=== PATIENT | male | born 1940 | race Caucasian/White ===

== ENCOUNTER 2019-04-16 20:24 | Emergency (ER) | payer MEDICARE ==
[~2019-04-16] VITALS: Ht 167.6 cm; Wt 70.0 kg
[2019-04-16 22:27] VITALS: BP 184/90
== END 2019-04-16 22:53 | disposition home or self-care (01) ==
LOC: ED 21:32
DX: N48.1 Balanitis (principal); I10 Essential (primary) hypertension; E11.9 Type 2 diabetes mellitus without complications; Z87.891 Personal history of nicotine dependence
CPT/HCPCS: 36415; 74177; 76870; 80053; 81001; 83605; 85025; 85610; 85730; 87040; 87086; 96365; 96375; 99284; J0696; J1170; J2405

== ENCOUNTER → 2019-09-04 | Outpatient (CLI) | payer MEDICARE ==
[~2019-09-04] MED LIST: ATOR20TA37 PO; CARV3.122 PO; FUROSEMIDE 20 MG/2 ML ONE; GADOTERATE 10 MMOL/20 ML VIAL ONE; GLIP2.5T3 PO; LISI5TAB7 PO; METF10002 PO
== END | disposition home or self-care (01) ==
LOC: RAD 07:03
PROVIDERS: ATTEND Physician Assistant
DX: N28.89 Other specified disorders of kidney and ureter (principal); M47.816 Spondylosis without myelopathy or radiculopathy, lumbar region
CPT/HCPCS: 72197; 74183; A9575; J1940

== ENCOUNTER 2019-12-14 15:51 | Inpatient (IN) | payer MEDICARE ==
[~2019-12-14] VITALS: Ht 165.1 cm; Wt 78.2 kg
[~2019-12-14 15:51] MED LIST changes: -FUROSEMIDE 20 MG/2 ML ONE; -GADOTERATE 10 MMOL/20 ML VIAL ONE
--- NOTE | 2019-12-14 16:23 | NUR ---
pt ambulated back to room, changed into gown, resting on gurnye, on monitor, call light within reach, pt denies additional needs at this time. WCTM. waiting for labs and rads results
[2019-12-14] MEDS ORDERED: METF500T27 PO (16:25)
[2019-12-14] MEDS ORDERED: PLEASE ENTER HEIGHT AND WEIGHT MC SCH (16:30)
[2019-12-14] MEDS ORDERED: ACETAMINOPHEN 500 MG TABLET PO ONE (16:30)
[2019-12-14] MEDS ORDERED: SODIUM CHLORIDE FLUSH 10ML SYR IVF ONE (16:30)
[2019-12-14] MEDS ORDERED: ONDANSETRON 2MG/ML, 2ML IVPush ONE (16:30)
[2019-12-14] MEDS ORDERED: ACETAMINOPHEN 500 MG TABLET ONE ×2 (16:31)
[2019-12-14] MEDS ORDERED: ONDANSETRON 2MG/ML, 2ML ONE (16:31)
[2019-12-14 16:39] LABS: BASOPHILS # (AUTO) 0.02 x10^3/uL (0-0.1); BASOPHILS % (AUTO) 0 % (0-1); EOSINOPHILS % (AUTO) 0 % (1-7); LYMPHOCYTES # (AUTO) 0.56 x10^3/uL (1-3.4); LYMPHOCYTES % (AUTO) 9 % (22-44); MD NO; MEAN CORPUSCULAR HEMOGLOBIN 31.1 pg (27.5-34.5); MEAN CORPUSCULAR HGB CONC 33.6 g/dL (33.2-36.2); MEAN CORPUSCULAR VOLUME 92.4 fL (81-97); MEAN PLATELET VOLUME 8.2 fL (7.4-10.4); MONOCYTES % (AUTO) 8 % (2-9); NEUTROPHILS # (AUTO) 5.44 x10^3/uL (1.8-6.8); NEUTROPHILS % (AUTO) 84 % (42-75); PLATELET COUNT 213 x10^3/uL (130-400); RED CELL DISTRIBUTION WIDTH 12.4 % (9.4-14.8)
[2019-12-14 16:45] LABS: ALANINE AMINOTRANSFERASE 20 U/L (12-78); ANION GAP 7 mmol/L (5-15); CALCIUM 8.3 mg/dL (8.5-10.1); CHLORIDE 98 mmol/L (98-107); CREATININE 1.04 mg/dL (0.7-1.3)
[2019-12-14 16:47] LABS: ALKALINE PHOSPHATASE 85 U/L (45-117); BILIRUBIN,TOTAL 0.6 mg/dL (0.2-1.0); TOTAL PROTEIN 7.2 g/dL (6.4-8.2)
--- NOTE | 2019-12-14 17:05 | NUR ---
resting in [facility], waiting for admit bed, denies additional needs at this time, call light within reach, WCTM.
--- NOTE | 2019-12-14 17:06 | NUR ---
carlos would like rn to call [phone]
[2019-12-14] MEDS ORDERED: SODIUM CHLORIDE 0.9% 1,000ML IVBOLUS ONE (17:30)
--- NOTE | 2019-12-14 17:31 | NUR ---
pt resting in [facility], currently denies additional needs, call light within reach, on monitor, NAD, , carlos, and daughter, sergei, updated per pt request, eyes open, respirations heard, even and unlabored, waiting for admit bed. WCTM
[2019-12-14] MEDS ORDERED: SODIUM CHLORIDE 0.9% 1,000 ML IV ONE (17:39)
[2019-12-14] MEDS ORDERED: SODIUM CHLORIDE FLUSH 10ML SYR IVF PRN (18:00)
[2019-12-14 18:07] LABS: CULTURE INDICATED? YES; MICROSCOPIC INDICATED
--- NOTE | 2019-12-14 18:07 | NUR ---
pt states he is "having really bad heartburn" notified. NAD, denies additional needs, call light in right hand, even respirations, eyes open, resting on gurney, waiting for admit bed, WCTM.
[2019-12-14] MEDS: SODIUM CHLORIDE 0.9% 1,000 ML IV SCH (18:50)
[2019-12-14] MEDS ORDERED: ALBUTEROL SULFATE 2.5 MG/3 ML NEB PRN (19:00)
[2019-12-14] MEDS ORDERED: hydrALAzine 20 MG/ML, 1ML IVPush PRN (19:00)
[2019-12-14] MEDS ORDERED: ONDANSETRON 2MG/ML, 2ML IVPush PRN (19:00)
[2019-12-14] MEDS: ATORVASTATIN 20 MG TABLET PO SCH (21:00)
[2019-12-14] MEDS: INSULIN LISPRO 100 UNITS/ML, PEN SQ-INSULIN SCH (21:00)
[2019-12-14] MEDS: CALCIUM CARBONATE 500 MG TAB.CHEW PO PRN (22:30)
[2019-12-15] MEDS: HYDROXYCHLOROQUINE 200 MG TABLET PO SCH ×2 (01:23→13:21)
[2019-12-15 02:05] VITALS: BP 124/66
[2019-12-15] MEDS ORDERED: LORazepam 2 MG/ML, 1ML IVPush PRN (02:30)
[2019-12-15] MEDS: CALCIUM CARBONATE 500 MG TAB.CHEW PO PRN ×3 (03:51→20:27)
[2019-12-15] MEDS: SODIUM CHLORIDE 0.9% 1,000 ML IV SCH ×2 (05:16→11:40)
[2019-12-15 05:55] LABS: BASOPHILS # (AUTO) 0.01 x10^3/uL (0-0.1); BASOPHILS % (AUTO) 0 % (0-1); EOSINOPHILS % (AUTO) 0 % (1-7); LYMPHOCYTES # (AUTO) 0.45 x10^3/uL (1-3.4); LYMPHOCYTES % (AUTO) 8 % (22-44); MD NO; MEAN CORPUSCULAR HEMOGLOBIN 31.5 pg (27.5-34.5); MEAN CORPUSCULAR HGB CONC 33.9 g/dL (33.2-36.2); MEAN PLATELET VOLUME 8.5 fL (7.4-10.4); MONOCYTES # (AUTO) 0.48 x10^3/uL (0.2-0.8); MONOCYTES % (AUTO) 8 % (2-9); NEUTROPHILS # (AUTO) 4.91 x10^3/uL (1.8-6.8); NEUTROPHILS % (AUTO) 84 % (42-75); PLATELET COUNT 187 x10^3/uL (130-400); RED BLOOD COUNT 4.55 x10^6/uL (4.38-5.82); RED CELL DISTRIBUTION WIDTH 12.3 % (9.4-14.8)
[2019-12-15 06:01] LABS: ANION GAP 8 mmol/L (5-15); CHLORIDE 102 mmol/L (98-107)
[2019-12-15] MEDS: INSULIN LISPRO 100 UNITS/ML, PEN SQ-INSULIN SCH ×4 (07:00→20:28)
[2019-12-15] MEDS: VENTOLIN PO SCH ×5 (07:30→20:40)
[2019-12-15] MEDS: LISINOPRIL 5 MG TABLET PO SCH (07:53)
[2019-12-15 08:00] VITALS: BP 119/55
[2019-12-15 14:45] VITALS: BP 176/81
[2019-12-15] MEDS ORDERED: PANTOPRAZOLE 40 MG IV ONE (16:13)
[2019-12-15] MEDS: ZINC SULFATE 220 MG CAPSULE PO SCH (16:18)
[2019-12-15] MEDS: ASCORBIC ACID 500 MG TABLET PO SCH (16:19)
[2019-12-15] MEDS: PANTOPRAZOLE 40 MG IV IVPush SCH (16:30)
[2019-12-15] MEDS: GLIPizide ER 2.5 MG TABLET PO SCH (20:18)
[2019-12-15] MEDS: ATORVASTATIN 20 MG TABLET PO SCH (20:18)
[2019-12-15] MEDS: CHOLECALCIFEROL 5,000u TAB PO SCH (20:18)
[2019-12-15 20:41] VITALS: BP 171/75
[2019-12-16] MEDS: CALCIUM CARBONATE 500 MG TAB.CHEW PO PRN ×2 (02:27→11:06)
[2019-12-16 02:42] VITALS: BP 155/80
[2019-12-16] MEDS ORDERED: MAALOX/HYOSCYAMINE/LIDOCAINE 45 ML BTL PO ONE (03:30)
[2019-12-16] MEDS: VENTOLIN PO SCH ×4 (05:30→20:21)
[2019-12-16] MEDS: INSULIN LISPRO 100 UNITS/ML, PEN SQ-INSULIN SCH ×3 (07:00→20:58)
[2019-12-16 07:37] VITALS: BP 131/59
[2019-12-16] MEDS: HYDROXYCHLOROQUINE 200 MG TABLET PO SCH ×2 (08:33→20:21)
[2019-12-16] MEDS: LISINOPRIL 5 MG TABLET PO SCH (08:33)
[2019-12-16] MEDS: metFORMIN XR 500 MG TAB.ER.24H PO SCH (08:33)
[2019-12-16] MEDS: ASCORBIC ACID 500 MG TABLET PO SCH ×2 (08:33→16:39)
[2019-12-16] MEDS: ZINC SULFATE 220 MG CAPSULE PO SCH (08:33)
[2019-12-16] MEDS: CHOLECALCIFEROL 5,000u TAB PO SCH ×2 (08:34→10:30)
[2019-12-16] MEDS: PANTOPRAZOLE 40 MG IV IVPush SCH (08:34)
[2019-12-16] MEDS: GLIPizide ER 2.5 MG TABLET PO SCH ×3 (08:34→20:58)
[2019-12-16] MEDS ORDERED: METOPROLOL 1 MG/ML, 5ML IVPush STA (09:23)
[2019-12-16] MEDS ORDERED: METOPROLOL TARTRATE 25 MG TAB PO SCH (09:30)
[2019-12-16] MEDS: ALUMINUM/MAG/SIMETHICONE 30 ML UDC PO PRN ×2 (11:06→22:29)
[2019-12-16] MEDS: CEFTRIAXONE PMX 1GM/50ML 50 ML IV SCH (11:07)
[2019-12-16] MEDS: AZITHROMYCIN 500 MG in SODIUM CHLORIDE 0.9% 250 ML IV SCH (12:14)
[2019-12-16 13:12] VITALS: BP 90/47
[2019-12-16] MEDS ORDERED: METOPROLOL 1 MG/ML, 5ML IVPush PRN (14:30)
[2019-12-16 14:54] VITALS: BP 119/55
[2019-12-16] MEDS: METOCLOPRAMIDE 5 MG/ML, 2ML IVPush PRN (15:35)
[2019-12-16 15:52] LABS: BASOPHILS % (AUTO) 0 % (0-1); EOSINOPHILS % (AUTO) 0 % (1-7); LYMPHOCYTES # (AUTO) 0.44 x10^3/uL (1-3.4); LYMPHOCYTES % (AUTO) 5 % (22-44); MD NO; MEAN CORPUSCULAR HEMOGLOBIN 31.2 pg (27.5-34.5); MEAN CORPUSCULAR HGB CONC 33.5 g/dL (33.2-36.2); MEAN CORPUSCULAR VOLUME 93.1 fL (81-97); MEAN PLATELET VOLUME 7.7 fL (7.4-10.4); MONOCYTES # (AUTO) 0.47 x10^3/uL (0.2-0.8); MONOCYTES % (AUTO) 6 % (2-9); NEUTROPHILS # (AUTO) 7.34 x10^3/uL (1.8-6.8); NEUTROPHILS % (AUTO) 89 % (42-75); PLATELET COUNT 213 x10^3/uL (130-400); RED CELL DISTRIBUTION WIDTH 12.8 % (9.4-14.8)
[2019-12-16 16:03] LABS: ALANINE AMINOTRANSFERASE 16 U/L (12-78); ALBUMIN 2.2 g/dL (3.4-5.0); ANION GAP 7 mmol/L (5-15); CHLORIDE 101 mmol/L (98-107); CREATININE 0.93 mg/dL (0.7-1.3)
[2019-12-16 16:08] LABS: ALKALINE PHOSPHATASE 60 U/L (45-117); BILIRUBIN,TOTAL 0.2 mg/dL (0.2-1.0); TOTAL PROTEIN 5.9 g/dL (6.4-8.2)
[2019-12-16] MEDS: ATORVASTATIN 20 MG TABLET PO SCH (20:21)
[2019-12-16 20:45] VITALS: BP 111/42
[2019-12-17 01:26] VITALS: BP 125/61
[2019-12-17] MEDS: CALCIUM CARBONATE 500 MG TAB.CHEW PO PRN ×3 (01:31→15:53)
[2019-12-17] MEDS: PANTOPRAZOLE 40MG TABLET PO SCH (05:37)
[2019-12-17] MEDS: VENTOLIN PO SCH ×4 (05:37→21:00)
[2019-12-17 07:50] VITALS: BP 142/69
[2019-12-17] MEDS: CHOLECALCIFEROL 5,000u TAB PO SCH ×2 (10:53→11:17)
[2019-12-17] MEDS: METOCLOPRAMIDE 5 MG/ML, 2ML IVPush PRN (11:17)
[2019-12-17] MEDS: ZINC SULFATE 220 MG CAPSULE PO SCH (11:17)
[2019-12-17] MEDS: metFORMIN XR 500 MG TAB.ER.24H PO SCH (11:17)
[2019-12-17] MEDS: LISINOPRIL 5 MG TABLET PO SCH (11:17)
[2019-12-17] MEDS: HYDROXYCHLOROQUINE 200 MG TABLET PO SCH ×2 (11:17→20:09)
[2019-12-17] MEDS: ASCORBIC ACID 500 MG TABLET PO SCH ×2 (11:17→15:52)
[2019-12-17] MEDS: CEFTRIAXONE PMX 1GM/50ML 50 ML IV SCH (11:18)
[2019-12-17] MEDS: GLIPizide ER 2.5 MG TABLET PO SCH (11:18)
[2019-12-17] MEDS: AZITHROMYCIN 500 MG in SODIUM CHLORIDE 0.9% 250 ML IV SCH (11:18)
[2019-12-17] MEDS: INSULIN LISPRO 100 UNITS/ML, PEN SQ-INSULIN SCH ×3 (11:48→21:00)
[2019-12-17] MEDS ORDERED: FUROSEMIDE 40 MG/4 ML IV ONE (12:30)
[2019-12-17 12:41] LABS: BASOPHILS # (AUTO) 0.01 x10^3/uL (0-0.1); BASOPHILS % (AUTO) 0 % (0-1); EOSINOPHILS % (AUTO) 0 % (1-7); LYMPHOCYTES # (AUTO) 0.49 x10^3/uL (1-3.4); LYMPHOCYTES % (AUTO) 6 % (22-44); MD NO; MEAN CORPUSCULAR HEMOGLOBIN 31.1 pg (27.5-34.5); MEAN CORPUSCULAR HGB CONC 33.6 g/dL (33.2-36.2); MEAN CORPUSCULAR VOLUME 92.4 fL (81-97); MEAN PLATELET VOLUME 7.6 fL (7.4-10.4); MONOCYTES % (AUTO) 5 % (2-9); NEUTROPHILS # (AUTO) 7.36 x10^3/uL (1.8-6.8); NEUTROPHILS % (AUTO) 89 % (42-75); PLATELET COUNT 241 x10^3/uL (130-400); RED CELL DISTRIBUTION WIDTH 12.5 % (9.4-14.8)
[2019-12-17 12:51] LABS: ANION GAP 7 mmol/L (5-15); CHLORIDE 103 mmol/L (98-107); CREATININE 0.89 mg/dL (0.7-1.3)
[2019-12-17 13:21] VITALS: BP 92/67
[2019-12-17] MEDS: ATORVASTATIN 20 MG TABLET PO SCH (20:09)
[2019-12-17 21:15] VITALS: BP 149/63
[2019-12-18] MEDS ORDERED: SUCCINYLCHOLINE 20 MG/ML, 10ML ONE
[2019-12-18] MEDS ORDERED: ETOMIDATE 40 MG/20 ML ONE
[2019-12-18] MEDS ORDERED: PROPOFOL 10 MG/ML, 100ML IV ONE
[2019-12-18 01:44] VITALS: BP 118/64
[2019-12-18] MEDS: PANTOPRAZOLE 40MG TABLET PO SCH ×2 (06:00→06:28)
[2019-12-18] MEDS: VENTOLIN PO SCH ×3 (06:25→16:00)
[2019-12-18] MEDS: METOCLOPRAMIDE 5 MG/ML, 2ML IVPush PRN (06:55)
[2019-12-18] MEDS: INSULIN LISPRO 100 UNITS/ML, PEN SQ-INSULIN SCH ×4 (07:00→23:07)
[2019-12-18] MEDS: ASCORBIC ACID 500 MG TABLET PO SCH ×2 (08:00→18:33)
[2019-12-18] MEDS: LISINOPRIL 5 MG TABLET PO SCH (08:58)
[2019-12-18] MEDS: HYDROXYCHLOROQUINE 200 MG TABLET PO SCH ×2 (08:58→21:00)
[2019-12-18] MEDS: CHOLECALCIFEROL 5,000u TAB PO SCH ×2 (08:58)
[2019-12-18] MEDS: ZINC SULFATE 220 MG CAPSULE PO SCH (08:58)
[2019-12-18] MEDS ORDERED: AMIODARONE 150 MG in DEXTROSE 5% 100 ML IV ONE (09:00)
[2019-12-18] MEDS: AMIODARONE 450 MG in DEXTROSE 5% 241 ML IV PRN ×2 (09:15→20:20)
[2019-12-18] MEDS ORDERED: FILTER 0.22 MICRON IV PRN (09:30)
[2019-12-18 10:04] VITALS: BP 125/76
[2019-12-18 11:34] LABS: TROPONIN I < 0.015 ng/mL (0.000-0.045)
[2019-12-18 11:53] VITALS: BP 108/66
[2019-12-18] MEDS: CEFTRIAXONE PMX 1GM/50ML 50 ML IV SCH (11:58)
[2019-12-18] MEDS ORDERED: NOREPINEPHRINE 1 MG/ML, 4ML ONE (15:01)
[2019-12-18] MEDS ORDERED: PHARMACY MAY ADJ FOR RENAL FX MC SCH (15:30)
[2019-12-18] MEDS ORDERED: SENNA/DOCUSATE TABLET NG PRN (15:30)
[2019-12-18] MEDS ORDERED: DEXTROSE 50%, 50ML SYRINGE IVPush PRN (15:30)
[2019-12-18] MEDS ORDERED: GLUCAGON 1 MG IM PRN (15:30)
[2019-12-18] MEDS ORDERED: BISACODYL 10 MG SUPP PR PRN (15:30)
[2019-12-18] MEDS ORDERED: LIDOCAINE-MPF 1%, 2ML ENDO PRN (15:30)
[2019-12-18] MEDS ORDERED: DEXTROSE 4 GM TAB.CHEW PO PRN (15:30)
[2019-12-18] MEDS ORDERED: SENNA 176 MG/5 ML ORAL SOL NG PRN (15:30)
[2019-12-18] MEDS ORDERED: LACTULOSE 20 GM/30 ML UDC NG PRN (15:30)
[2019-12-18] MEDS: ALBUTEROL SULFATE 2.5MG/0.5ML NPPB SCH ×2 (19:52→22:22)
[2019-12-18] MEDS: SODIUM CHLORIDE FLUSH 10ML SYR IVF SCH (21:00)
[2019-12-18] MEDS: ATORVASTATIN 20 MG TABLET PO SCH (21:00)
[2019-12-18] MEDS ORDERED: ALBUTEROL SULFATE 2.5 MG/3 ML ONE (22:18)
[2019-12-18] MEDS: ACETAMINOPHEN 325 MG TABLET PO PRN (23:08)
[2019-12-19] MEDS: PROPOFOL 100 ML IV PRN ×3 (02:22→14:25)
[2019-12-19] MEDS ORDERED: ALBUTEROL SULFATE 2.5 MG/3 ML ONE ×6 (02:49→22:57)
[2019-12-19] MEDS: ALBUTEROL SULFATE 2.5MG/0.5ML NPPB SCH ×6 (02:52→23:01)
[2019-12-19 04:00] VITALS: BP 112/52
[2019-12-19 05:28] LABS: BASOPHILS # (AUTO) 0.01 x10^3/uL (0-0.1); BASOPHILS % (AUTO) 0 % (0-1); EOSINOPHILS # (AUTO) 0.04 x10^3/uL (0-0.4); EOSINOPHILS % (AUTO) 0 % (1-7); LYMPHOCYTES # (AUTO) 0.39 x10^3/uL (1-3.4); LYMPHOCYTES % (AUTO) 3 % (22-44); MD NO; MEAN CORPUSCULAR HEMOGLOBIN 31.3 pg (27.5-34.5); MEAN PLATELET VOLUME 7.9 fL (7.4-10.4); MONOCYTES # (AUTO) 0.37 x10^3/uL (0.2-0.8); MONOCYTES % (AUTO) 3 % (2-9); NEUTROPHILS # (AUTO) 12.06 x10^3/uL (1.8-6.8); NEUTROPHILS % (AUTO) 94 % (42-75); PLATELET COUNT 285 x10^3/uL (130-400); RED BLOOD COUNT 4.08 x10^6/uL (4.38-5.82); RED CELL DISTRIBUTION WIDTH 12.5 % (9.4-14.8)
[2019-12-19 05:29] LABS: ANION GAP 6 mmol/L (5-15); CALCIUM 7.6 mg/dL (8.5-10.1); CHLORIDE 102 mmol/L (98-107)
[2019-12-19 05:31] LABS: CREATININE 1.32 mg/dL (0.7-1.3)
[2019-12-19] MEDS: PANTOPRAZOLE 40 MG IV IVPush SCH (06:25)
[2019-12-19] MEDS: INSULIN LISPRO 100 UNITS/ML, PEN SQ-INSULIN SCH ×4 (06:26→20:28)
[2019-12-19] MEDS: AZITHROMYCIN 500 MG in SODIUM CHLORIDE 0.9% 250 ML IV SCH (07:46)
[2019-12-19] MEDS: CHOLECALCIFEROL 5,000u TAB PO SCH ×2 (08:02→10:11)
[2019-12-19] MEDS: LISINOPRIL 5 MG TABLET PO SCH (08:02)
[2019-12-19] MEDS ORDERED: AZITHROMYCIN 250 MG TABLET PO SCH (09:00)
[2019-12-19] MEDS: SODIUM CHLORIDE FLUSH 10ML SYR IVF SCH ×2 (09:07→20:27)
[2019-12-19] MEDS: HYDROXYCHLOROQUINE 200 MG TABLET PO SCH (09:07)
[2019-12-19] MEDS: ENOXAPARIN 40 MG/0.4 ML SQ SCH (09:07)
[2019-12-19] MEDS: CEFTRIAXONE PMX 1GM/50ML 50 ML IV SCH (10:11)
[2019-12-19] MEDS: ZINC SULFATE 220 MG CAPSULE PO SCH (10:11)
--- NOTE | 2019-12-19 10:25 | NUR ---
TF GOAL: w/ propofol: PROMOTE @ 60ML/HR off propofol: 70ML/HR
[2019-12-19] MEDS: INSULIN GLARGINE 100 UNITS/ML, PEN SQ-INSULIN SCH ×2 (12:55→20:28)
[2019-12-19] MEDS: ASCORBATE SODIUM 3,000 MG in SODIUM CHLORIDE 0.9% 250 ML IV SCH ×2 (14:56→20:26)
[2019-12-19 15:10] LABS: BILIRUBIN, DIRECT 0.3 mg/dL (0.1-0.2); BILIRUBIN,INDIRECT 0.2 mg/dL (0.0-2.0); BILIRUBIN,TOTAL 0.5 mg/dL (0.2-1.0)
[2019-12-19 15:18] LABS: INTERNATIONAL NORMALIZED RATIO 1.01 (0.93-1.1); PROTHROMBIN TIME 10.7 Seconds (9.6-11.5)
[2019-12-19] MEDS ORDERED: PLAQUENIL 200MG/8ML ORAL SUSP PO SCH (21:00)
[2019-12-20] MEDS: AMIODARONE 450 MG in DEXTROSE 5% 241 ML IV PRN (01:28)
[2019-12-20] MEDS: PROPOFOL 100 ML IV PRN ×4 (01:29→21:47)
[2019-12-20] MEDS ORDERED: ALBUTEROL SULFATE 2.5 MG/3 ML ONE ×6 (02:33→21:49)
[2019-12-20] MEDS: ALBUTEROL SULFATE 2.5MG/0.5ML NPPB SCH ×6 (03:00→21:58)
[2019-12-20] MEDS: ASCORBATE SODIUM 3,000 MG in SODIUM CHLORIDE 0.9% 250 ML IV SCH ×4 (03:46→21:47)
[2019-12-20 04:00] VITALS: BP 93/57
[2019-12-20 04:21] LABS: BASOPHILS % (AUTO) 0 % (0-1); EOSINOPHILS # (AUTO) 0.03 x10^3/uL (0-0.4); EOSINOPHILS % (AUTO) 0 % (1-7); LYMPHOCYTES # (AUTO) 0.42 x10^3/uL (1-3.4); LYMPHOCYTES % (AUTO) 4 % (22-44); MD NO; MEAN CORPUSCULAR HGB CONC 33.4 g/dL (33.2-36.2); MEAN CORPUSCULAR VOLUME 92.8 fL (81-97); MEAN PLATELET VOLUME 8.3 fL (7.4-10.4); MONOCYTES # (AUTO) 0.27 x10^3/uL (0.2-0.8); MONOCYTES % (AUTO) 2 % (2-9); NEUTROPHILS # (AUTO) 11.09 x10^3/uL (1.8-6.8); NEUTROPHILS % (AUTO) 94 % (42-75); PLATELET COUNT 301 x10^3/uL (130-400); RED BLOOD COUNT 3.68 x10^6/uL (4.38-5.82); RED CELL DISTRIBUTION WIDTH 12.8 % (9.4-14.8)
[2019-12-20 04:26] LABS: INTERNATIONAL NORMALIZED RATIO 0.97 (0.93-1.1); PROTHROMBIN TIME 10.3 Seconds (9.6-11.5)
[2019-12-20 04:30] LABS: ANION GAP 8 mmol/L (5-15); CALCIUM 7.3 mg/dL (8.5-10.1); CHLORIDE 101 mmol/L (98-107)
[2019-12-20 04:32] LABS: BILIRUBIN,TOTAL 0.2 mg/dL (0.2-1.0); CREATININE 1.35 mg/dL (0.7-1.3)
[2019-12-20 05:25] LABS: TROPONIN I < 0.015 ng/mL (0.000-0.045)
[2019-12-20] MEDS: PANTOPRAZOLE 40 MG IV IVPush SCH (05:52)
[2019-12-20] MEDS: INSULIN LISPRO 100 UNITS/ML, PEN SQ-INSULIN SCH ×4 (07:30→19:55)
[2019-12-20] MEDS: AZITHROMYCIN 500 MG in SODIUM CHLORIDE 0.9% 250 ML IV SCH (09:00)
[2019-12-20] MEDS: PLAQUENIL 200MG/8ML ORAL SUSP NG SCH ×2 (09:00→18:12)
[2019-12-20] MEDS: POTASSIUM CHLORIDE 10% 40 MEQ/30 ML UDC PO SCH ×2 (09:00→19:54)
[2019-12-20] MEDS: ENOXAPARIN 40 MG/0.4 ML SQ SCH (09:00)
[2019-12-20] MEDS: ZINC SULFATE 220 MG CAPSULE PO SCH (09:00)
[2019-12-20] MEDS: CHOLECALCIFEROL 5,000u TAB PO SCH (09:01)
[2019-12-20] MEDS: INSULIN GLARGINE 100 UNITS/ML, PEN SQ-INSULIN SCH (09:04)
[2019-12-20] MEDS: SODIUM CHLORIDE FLUSH 10ML SYR IVF SCH ×2 (09:21→19:55)
[2019-12-20] MEDS: CEFTRIAXONE PMX 1GM/50ML 50 ML IV SCH (14:18)
[2019-12-20] MEDS: FUROSEMIDE 40 MG/4 ML IV SCH (17:00)
[2019-12-20] MEDS: AMIODARONE 200 MG TABLET PO SCH (19:55)
[2019-12-20] MEDS ORDERED: INSULIN GLARGINE 100 UNITS/ML, PEN SQ-INSULIN SCH (21:00)
[2019-12-20] MEDS ORDERED: SODIUM CHLORIDE 0.9% 1,000 ML IV ONE (21:30)
[2019-12-21] MEDS ORDERED: ALBUTEROL SULFATE 2.5 MG/3 ML ONE ×3 (01:53→10:09)
[2019-12-21] MEDS: PLAQUENIL 200MG/8ML ORAL SUSP NG SCH ×3 (02:19→17:34)
[2019-12-21] MEDS: PROPOFOL 100 ML IV PRN ×4 (02:25→22:08)
[2019-12-21] MEDS: ALBUTEROL SULFATE 2.5MG/0.5ML NPPB SCH ×3 (02:27→10:17)
[2019-12-21] MEDS: ASCORBATE SODIUM 3,000 MG in SODIUM CHLORIDE 0.9% 250 ML IV SCH ×4 (04:29→22:08)
[2019-12-21] MEDS: PANTOPRAZOLE 40 MG IV IVPush SCH (04:29)
[2019-12-21 05:07] LABS: CHLORIDE 107 mmol/L (98-107)
[2019-12-21 05:13] LABS: BASOPHILS # (AUTO) 0.01 x10^3/uL (0-0.1); BASOPHILS % (AUTO) 0 % (0-1); EOSINOPHILS # (AUTO) 0.08 x10^3/uL (0-0.4); EOSINOPHILS % (AUTO) 1 % (1-7); LYMPHOCYTES # (AUTO) 0.42 x10^3/uL (1-3.4); LYMPHOCYTES % (AUTO) 4 % (22-44); MD NO; MEAN CORPUSCULAR HEMOGLOBIN 30.8 pg (27.5-34.5); MEAN CORPUSCULAR HGB CONC 32.9 g/dL (33.2-36.2); MEAN CORPUSCULAR VOLUME 93.5 fL (81-97); MEAN PLATELET VOLUME 8.2 fL (7.4-10.4); MONOCYTES # (AUTO) 0.38 x10^3/uL (0.2-0.8); MONOCYTES % (AUTO) 4 % (2-9); NEUTROPHILS # (AUTO) 9.83 x10^3/uL (1.8-6.8); NEUTROPHILS % (AUTO) 92 % (42-75); PLATELET COUNT 307 x10^3/uL (130-400); RED BLOOD COUNT 3.47 x10^6/uL (4.38-5.82); RED CELL DISTRIBUTION WIDTH 12.8 % (9.4-14.8)
[2019-12-21 05:16] LABS: ANION GAP 7 mmol/L (5-15); BILIRUBIN,TOTAL 0.2 mg/dL (0.2-1.0); CALCIUM 7.2 mg/dL (8.5-10.1); CREATININE 1.19 mg/dL (0.7-1.3); TRIGLYCERIDES 104 mg/dL (50-200); TROPONIN I < 0.015 ng/mL (0.000-0.045)
[2019-12-21 05:17] LABS: INTERNATIONAL NORMALIZED RATIO 0.95 (0.93-1.1); PROTHROMBIN TIME 10.1 Seconds (9.6-11.5)
[2019-12-21] MEDS: FUROSEMIDE 40 MG/4 ML IV SCH ×2 (07:30→17:00)
[2019-12-21] MEDS: AZITHROMYCIN 500 MG in SODIUM CHLORIDE 0.9% 250 ML IV SCH (08:58)
[2019-12-21] MEDS: AMIODARONE 200 MG TABLET PO SCH ×2 (09:03→19:50)
[2019-12-21] MEDS: CHOLECALCIFEROL 5,000u TAB PO SCH (09:04)
[2019-12-21] MEDS: ENOXAPARIN 40 MG/0.4 ML SQ SCH (09:05)
[2019-12-21] MEDS: SODIUM CHLORIDE FLUSH 10ML SYR IVF SCH ×2 (09:05→19:35)
[2019-12-21] MEDS: INSULIN GLARGINE 100 UNITS/ML, PEN SQ-INSULIN SCH ×2 (09:17→19:53)
[2019-12-21] MEDS: INSULIN LISPRO 100 UNITS/ML, PEN SQ-INSULIN SCH ×3 (09:18→19:53)
[2019-12-21] MEDS: ZINC SULFATE 220 MG CAPSULE PO SCH (11:32)
[2019-12-21] MEDS: ALBUTEROL/IPRATROPIUM 2.5MG/0.5MG, 3 ML NPPB SCH ×3 (14:27→22:17)
[2019-12-22] MEDS: PLAQUENIL 200MG/8ML ORAL SUSP NG SCH ×3 (02:08→17:32)
[2019-12-22] MEDS: ALBUTEROL/IPRATROPIUM 2.5MG/0.5MG, 3 ML NPPB SCH ×6 (02:16→22:18)
[2019-12-22] MEDS: ASCORBATE SODIUM 3,000 MG in SODIUM CHLORIDE 0.9% 250 ML IV SCH ×3 (03:35→16:19)
[2019-12-22] MEDS: PROPOFOL 100 ML IV PRN ×3 (03:35→17:33)
[2019-12-22] MEDS: PANTOPRAZOLE 40 MG IV IVPush SCH (03:35)
[2019-12-22] MEDS: INSULIN LISPRO 100 UNITS/ML, PEN SQ-INSULIN SCH ×3 (03:36→16:25)
[2019-12-22 03:41] LABS: MEAN CORPUSCULAR HEMOGLOBIN 30.7 pg (27.5-34.5); MEAN CORPUSCULAR HGB CONC 32.6 g/dL (33.2-36.2); MEAN CORPUSCULAR VOLUME 94.2 fL (81-97); MEAN PLATELET VOLUME 7.5 fL (7.4-10.4); PLATELET COUNT 387 x10^3/uL (130-400); RED BLOOD COUNT 3.57 x10^6/uL (4.38-5.82)
[2019-12-22 03:54] LABS: ANION GAP 7 mmol/L (5-15); CALCIUM 7.7 mg/dL (8.5-10.1); CHLORIDE 106 mmol/L (98-107); CREATININE 1.01 mg/dL (0.7-1.3)
[2019-12-22 03:57] LABS: TROPONIN I < 0.015 ng/mL (0.000-0.045)
[2019-12-22 04:00] LABS: D-DIMER 4.55 ug/mlFEU (0.00-0.52); INTERNATIONAL NORMALIZED RATIO 0.94 (0.93-1.1)
[2019-12-22 04:02] LABS: BILIRUBIN,TOTAL 0.2 mg/dL (0.2-1.0)
[2019-12-22 04:05] LABS: MD YES
[2019-12-22 04:06] LABS: BAND#(MANUAL) 0.12 x10^3/uL; BANDS%(MANUAL) 1 % (0-7); EOS#(MANUAL) 0.25 x10^3/uL (0.0-0.4); EOS% (MANUAL) 2 % (1-7); LYMPH#(MANUAL) 0.49 x10^3/uL (1-3.4); LYMPHS% (MANUAL) 4 % (22-44); MONOS#(MANUAL) 0.12 x10^3/uL (0.3-2.7); MONOS% (MANUAL) 1 % (2-9); MYELOCYTES# (MANUAL) 0.12 x10^3/uL (0-0); MYELOCYTES% (MANUAL) 1 % (0-0); SEG#(MANUAL) 11.19 x10^3/uL (1.8-6.8); SEGS% (MANUAL) 91 % (42-75)
[2019-12-22 04:07] LABS: <PLATELET ESTIMATE> ADEQUATE; ANISOCYTOSIS 1+; LARGE PLATELETS 1+; TEAR DROPS 1+; TOXIC GRAN 1+
[2019-12-22] MEDS: PIPERACILLIN/TAZO/PMX 3.375GM 50 ML IV SCH ×3 (08:05→21:39)
[2019-12-22] MEDS: ENOXAPARIN 40 MG/0.4 ML SQ SCH (08:07)
[2019-12-22] MEDS: SODIUM CHLORIDE FLUSH 10ML SYR IVF SCH ×2 (08:07→21:39)
[2019-12-22] MEDS: INSULIN GLARGINE 100 UNITS/ML, PEN SQ-INSULIN SCH (08:10)
[2019-12-22] MEDS: ZINC SULFATE 220 MG CAPSULE PO SCH (08:11)
[2019-12-22] MEDS: AMIODARONE 200 MG TABLET PO SCH ×2 (08:12→21:39)
[2019-12-22] MEDS: CHOLECALCIFEROL 5,000u TAB PO SCH (08:12)
[2019-12-22] MEDS: FUROSEMIDE 40 MG/4 ML IV SCH ×2 (08:18→16:19)
[2019-12-22] MEDS: metFORMIN 500 MG TABLET PO SCH ×2 (10:11→16:19)
[2019-12-23] MEDS: ASCORBATE SODIUM 3,000 MG in SODIUM CHLORIDE 0.9% 250 ML IV SCH ×5 (00:23→22:36)
[2019-12-23] MEDS: INSULIN GLARGINE 100 UNITS/ML, PEN SQ-INSULIN SCH ×3 (00:37→23:02)
[2019-12-23] MEDS: INSULIN LISPRO 100 UNITS/ML, PEN SQ-INSULIN SCH ×5 (00:38→23:00)
[2019-12-23] MEDS: ALBUTEROL/IPRATROPIUM 2.5MG/0.5MG, 3 ML NPPB SCH ×6 (02:26→22:30)
[2019-12-23] MEDS: PIPERACILLIN/TAZO/PMX 3.375GM 50 ML IV SCH ×2 (03:21→08:05)
[2019-12-23] MEDS: PLAQUENIL 200MG/8ML ORAL SUSP NG SCH ×3 (03:21→17:33)
[2019-12-23 04:31] LABS: BASOPHILS # (AUTO) 0.02 x10^3/uL (0-0.1); BASOPHILS % (AUTO) 0 % (0-1); EOSINOPHILS # (AUTO) 0.14 x10^3/uL (0-0.4); EOSINOPHILS % (AUTO) 1 % (1-7); LYMPHOCYTES # (AUTO) 0.39 x10^3/uL (1-3.4); LYMPHOCYTES % (AUTO) 3 % (22-44); MD NO; MEAN CORPUSCULAR HGB CONC 33.1 g/dL (33.2-36.2); MEAN CORPUSCULAR VOLUME 93.7 fL (81-97); MEAN PLATELET VOLUME 7.9 fL (7.4-10.4); MONOCYTES # (AUTO) 0.39 x10^3/uL (0.2-0.8); MONOCYTES % (AUTO) 3 % (2-9); NEUTROPHILS # (AUTO) 11.08 x10^3/uL (1.8-6.8); NEUTROPHILS % (AUTO) 92 % (42-75); PLATELET COUNT 371 x10^3/uL (130-400); RED BLOOD COUNT 3.43 x10^6/uL (4.38-5.82); RED CELL DISTRIBUTION WIDTH 13.4 % (9.4-14.8)
[2019-12-23 04:36] LABS: ANION GAP 6 mmol/L (5-15); CALCIUM 7.5 mg/dL (8.5-10.1); CHLORIDE 106 mmol/L (98-107); CREATININE 1.31 mg/dL (0.7-1.3)
[2019-12-23 04:41] LABS: BILIRUBIN,TOTAL 0.4 mg/dL (0.2-1.0); TROPONIN I < 0.015 ng/mL (0.000-0.045)
[2019-12-23 04:44] LABS: C-REACTIVE PROTEIN, QUANT > 19.00 mg/dL (0.02-0.49); D-DIMER 11.13 ug/mlFEU (0.00-0.52); INTERNATIONAL NORMALIZED RATIO 0.96 (0.93-1.1); PROTHROMBIN TIME 10.2 Seconds (9.6-11.5)
[2019-12-23] MEDS: PANTOPRAZOLE 40 MG IV IVPush SCH (05:14)
[2019-12-23] MEDS: PROPOFOL 100 ML IV PRN ×4 (06:05→22:37)
[2019-12-23] MEDS: SODIUM CHLORIDE FLUSH 10ML SYR IVF SCH ×2 (08:04→20:48)
[2019-12-23] MEDS: FUROSEMIDE 40 MG/4 ML IV SCH ×2 (08:04→17:32)
[2019-12-23] MEDS: ENOXAPARIN 40 MG/0.4 ML SQ SCH (08:05)
[2019-12-23] MEDS: metFORMIN 500 MG TABLET PO SCH (08:05)
[2019-12-23] MEDS: AMIODARONE 200 MG TABLET PO SCH ×2 (08:06→20:48)
[2019-12-23] MEDS: ZINC SULFATE 220 MG CAPSULE PO SCH (08:07)
[2019-12-23] MEDS: CHOLECALCIFEROL 5,000u TAB PO SCH (08:07)
[2019-12-23] MEDS: MEROPENEM 500 MG in SODIUM CHLORIDE 0.9% 100 ML IV SCH ×2 (10:46→20:48)
[2019-12-23] MEDS ORDERED: ALTEPLASE IV ONE ×2 (13:30→14:00)
[2019-12-23] MEDS ORDERED: ALTEPLASE 50 ML IV ONE (14:00)
[2019-12-24] MEDS: PLAQUENIL 200MG/8ML ORAL SUSP NG SCH ×3 (01:42→16:36)
[2019-12-24] MEDS: ALBUTEROL/IPRATROPIUM 2.5MG/0.5MG, 3 ML NPPB SCH ×6 (02:15→22:20)
[2019-12-24] MEDS: PROPOFOL 100 ML IV PRN ×4 (02:33→20:00)
[2019-12-24] MEDS: MEROPENEM 500 MG in SODIUM CHLORIDE 0.9% 100 ML IV SCH ×2 (04:28→12:06)
[2019-12-24] MEDS: INSULIN LISPRO 100 UNITS/ML, PEN SQ-INSULIN SCH ×4 (04:28→22:11)
[2019-12-24 04:33] LABS: MEAN CORPUSCULAR HEMOGLOBIN 30.7 pg (27.5-34.5); MEAN CORPUSCULAR HGB CONC 32.9 g/dL (33.2-36.2); MEAN CORPUSCULAR VOLUME 93.3 fL (81-97); MEAN PLATELET VOLUME 7.3 fL (7.4-10.4); PLATELET COUNT 408 x10^3/uL (130-400); RED CELL DISTRIBUTION WIDTH 13.1 % (9.4-14.8)
[2019-12-24 04:43] LABS: ANION GAP 12 mmol/L (5-15); CALCIUM 7.8 mg/dL (8.5-10.1); CHLORIDE 106 mmol/L (98-107); CREATININE 1.69 mg/dL (0.7-1.3); TRIGLYCERIDES 50 mg/dL (50-200)
[2019-12-24 04:44] LABS: MD YES
[2019-12-24 04:46] LABS: ANISOCYTOSIS 1+; BAND#(MANUAL) 0.81 x10^3/uL; BANDS%(MANUAL) 6 % (0-7); LYMPH#(MANUAL) 0.95 x10^3/uL (1-3.4); LYMPHS% (MANUAL) 7 % (22-44); MONOS#(MANUAL) 0.14 x10^3/uL (0.3-2.7); MONOS% (MANUAL) 1 % (2-9); SEG#(MANUAL) 11.61 x10^3/uL (1.8-6.8); SEGS% (MANUAL) 86 % (42-75)
[2019-12-24 04:47] LABS: <PLATELET ESTIMATE> INCREASED; BILIRUBIN,TOTAL 0.3 mg/dL (0.2-1.0); LARGE PLATELETS 1+; POLYCHROMASIA 1+; TOXIC GRAN 1+; TROPONIN I < 0.015 ng/mL (0.000-0.045)
[2019-12-24 04:51] LABS: C-REACTIVE PROTEIN, QUANT > 19.00 mg/dL (0.02-0.49)
[2019-12-24 05:05] LABS: D-DIMER > 35.20 ug/mlFEU (0.00-0.52); PROTHROMBIN TIME 10.6 Seconds (9.6-11.5)
[2019-12-24] MEDS: PANTOPRAZOLE 40 MG IV IVPush SCH (05:34)
[2019-12-24] MEDS: ASCORBATE SODIUM 3,000 MG in SODIUM CHLORIDE 0.9% 250 ML IV SCH ×3 (05:34→16:35)
[2019-12-24] MEDS: ZINC SULFATE 220 MG CAPSULE PO SCH (07:55)
[2019-12-24] MEDS: AMIODARONE 200 MG TABLET PO SCH ×2 (07:55→22:09)
[2019-12-24] MEDS: FUROSEMIDE 40 MG/4 ML IV SCH ×2 (07:55→16:35)
[2019-12-24] MEDS: SODIUM CHLORIDE FLUSH 10ML SYR IVF SCH ×2 (07:55→21:00)
[2019-12-24] MEDS: CHOLECALCIFEROL 5,000u TAB PO SCH (07:55)
[2019-12-24] MEDS: INSULIN GLARGINE 100 UNITS/ML, PEN SQ-INSULIN SCH ×2 (07:58→21:00)
[2019-12-24] MEDS ORDERED: VECURONIUM 10 MG IVPush ONE (10:30)
[2019-12-24] MEDS ORDERED: VECURONIUM 10 MG ONE (11:00)
[2019-12-24] MEDS ORDERED: PROPOFOL 10 MG/ML, 100ML IV ONE (11:00)
[2019-12-24] MEDS ORDERED: CODE BLUE RESPONSE XX ONE (11:00)
[2019-12-24] MEDS: VECURONIUM 50 MG in SODIUM CHLORIDE 0.9% 50 ML IV PRN (12:06)
[2019-12-24] MEDS ORDERED: methylPREDNISolone SOD SUCC 40 MG/ML IVPush ONE (13:30)
[2019-12-24] MEDS ORDERED: HEPARIN 5,000 UNITS/ML, 1ML IV PRN (14:00)
[2019-12-24] MEDS ORDERED: TOCILIZUMAB 800 MG in SODIUM CHLORIDE 0.9% 100 ML IVPB ONE (14:00)
[2019-12-24] MEDS ORDERED: TOCILIZUMAB 800 MG in SODIUM CHLORIDE 0.9% 60 ML IVPB ONE (14:00)
[2019-12-24] MEDS ORDERED: HEPARIN 25,000 UNITS/250ML PMX 250 ML IV PRN (14:00)
[2019-12-24] MEDS ORDERED: HEPARIN 5,000 UNITS/ML, 1ML IV ONE (14:00)
[2019-12-24] MEDS: ENOXAPARIN 80 MG/0.8 ML SQ SCH (16:34)
[2019-12-24] MEDS: ARTIFICIAL TEARS OINT 3.5 GM EACHEYE SCH (22:08)
[2019-12-25] MEDS: ASCORBATE SODIUM 3,000 MG in SODIUM CHLORIDE 0.9% 250 ML IV SCH ×5 (00:37→22:54)
[2019-12-25] MEDS: MEROPENEM 500 MG in SODIUM CHLORIDE 0.9% 100 ML IV SCH ×2 (00:37→12:27)
[2019-12-25] MEDS: PROPOFOL 100 ML IV PRN ×4 (00:38→22:55)
[2019-12-25] MEDS: ARTIFICIAL TEARS OINT 3.5 GM EACHEYE SCH ×4 (02:32→22:55)
[2019-12-25] MEDS: PLAQUENIL 200MG/8ML ORAL SUSP NG SCH ×3 (02:32→16:40)
[2019-12-25] MEDS: ENOXAPARIN 80 MG/0.8 ML SQ SCH (02:32)
[2019-12-25] MEDS: ALBUTEROL/IPRATROPIUM 2.5MG/0.5MG, 3 ML NPPB SCH ×6 (03:10→22:12)
[2019-12-25 04:52] LABS: MEAN CORPUSCULAR HEMOGLOBIN 30.7 pg (27.5-34.5); MEAN CORPUSCULAR VOLUME 93.2 fL (81-97); MEAN PLATELET VOLUME 7.9 fL (7.4-10.4); PLATELET COUNT 422 x10^3/uL (130-400); RED BLOOD COUNT 3.31 x10^6/uL (4.38-5.82); RED CELL DISTRIBUTION WIDTH 13.6 % (9.4-14.8)
[2019-12-25 05:02] LABS: ANION GAP 12 mmol/L (5-15); CALCIUM 7.8 mg/dL (8.5-10.1); CHLORIDE 106 mmol/L (98-107)
[2019-12-25] MEDS: PANTOPRAZOLE 40 MG IV IVPush SCH (05:02)
[2019-12-25] MEDS: VECURONIUM 50 MG in SODIUM CHLORIDE 0.9% 50 ML IV PRN (05:02)
[2019-12-25] MEDS: INSULIN LISPRO 100 UNITS/ML, PEN SQ-INSULIN SCH ×4 (05:03→23:00)
[2019-12-25 05:08] LABS: BILIRUBIN,TOTAL 0.2 mg/dL (0.2-1.0); CREATININE 3.18 mg/dL (0.7-1.3); TROPONIN I 0.172 ng/mL (0.000-0.045)
[2019-12-25 05:23] LABS: C-REACTIVE PROTEIN, QUANT > 19.00 mg/dL (0.02-0.49)
[2019-12-25 05:27] LABS: FIO2 100 %
[2019-12-25 05:38] LABS: D-DIMER > 35.00 ug/mlFEU (0.00-0.52); INTERNATIONAL NORMALIZED RATIO 1.06 (0.93-1.1); PROTHROMBIN TIME 11.2 Seconds (9.6-11.5)
[2019-12-25 05:46] LABS: BASOPHILS % (AUTO) 0 % (0-1); EOSINOPHILS # (AUTO) 0.13 x10^3/uL (0-0.4); EOSINOPHILS % (AUTO) 1 % (1-7); LYMPHOCYTES # (AUTO) 0.41 x10^3/uL (1-3.4); LYMPHOCYTES % (AUTO) 3 % (22-44); MD SCAN; MONOCYTES # (AUTO) 0.27 x10^3/uL (0.2-0.8); MONOCYTES % (AUTO) 2 % (2-9); NEUTROPHILS % (AUTO) 95 % (42-75)
[2019-12-25] MEDS: FUROSEMIDE 40 MG/4 ML IV SCH (07:30)
[2019-12-25] MEDS: ZINC SULFATE 220 MG CAPSULE PO SCH (07:42)
[2019-12-25] MEDS: AMIODARONE 200 MG TABLET PO SCH ×2 (07:42→21:01)
[2019-12-25] MEDS: CHOLECALCIFEROL 5,000u TAB PO SCH (07:42)
[2019-12-25] MEDS: SODIUM CHLORIDE FLUSH 10ML SYR IVF SCH ×2 (07:43→21:02)
[2019-12-25] MEDS: INSULIN GLARGINE 100 UNITS/ML, PEN SQ-INSULIN SCH (09:00)
[2019-12-25 10:49] LABS: ABSOLUTE RETICS # 0.034 x10^6/uL (0.5-1.5); RED BLOOD COUNT 3.45 x10^6/uL (4.38-5.82); RETICULOCYTE COUNT % 0.97 % (0.5-1.5)
[2019-12-25 17:22] LABS: CHLORIDE,URINE RANDOM 101 mmol/L; POTASSIUM,URINE RANDOM 27 mmol/L; SODIUM,URINE RANDOM 99 mmol/L
[2019-12-25 17:27] LABS: MICROSCOPIC INDICATED
[2019-12-26] MEDS: PROPOFOL 100 ML IV PRN ×6 (00:42→23:35)
[2019-12-26] MEDS: MEROPENEM 500 MG in SODIUM CHLORIDE 0.9% 100 ML IV SCH ×2 (01:19→13:55)
[2019-12-26] MEDS: HEPARIN 5,000 UNITS/ML, 1ML IV PRN ×3 (02:35→23:57)
[2019-12-26] MEDS: ALBUTEROL/IPRATROPIUM 2.5MG/0.5MG, 3 ML NPPB SCH ×6 (02:36→22:05)
[2019-12-26] MEDS: HEPARIN 25,000 UNITS/250ML PMX 250 ML IV PRN (02:37)
[2019-12-26] MEDS: PLAQUENIL 200MG/8ML ORAL SUSP NG SCH ×3 (02:42→17:31)
[2019-12-26 03:17] LABS: INTERNATIONAL NORMALIZED RATIO 1.02 (0.93-1.1); PROTHROMBIN TIME 10.8 Seconds (9.6-11.5)
[2019-12-26 03:20] LABS: ALANINE AMINOTRANSFERASE 28 U/L (12-78); ALBUMIN 1.1 g/dL (3.4-5.0); ANION GAP 19 mmol/L (5-15); CALCIUM 6.4 mg/dL (8.5-10.1); CHLORIDE 105 mmol/L (98-107); CREATININE 4.11 mg/dL (0.7-1.3)
[2019-12-26 03:23] LABS: ALKALINE PHOSPHATASE 118 U/L (45-117); BILIRUBIN,TOTAL 0.1 mg/dL (0.2-1.0); TOTAL PROTEIN 5.8 g/dL (6.4-8.2)
[2019-12-26 03:37] LABS: MEAN CORPUSCULAR HGB CONC 33.2 g/dL (33.2-36.2); MEAN CORPUSCULAR VOLUME 93.2 fL (81-97); MEAN PLATELET VOLUME 7.8 fL (7.4-10.4); PLATELET COUNT 529 x10^3/uL (130-400); RED BLOOD COUNT 3.48 x10^6/uL (4.38-5.82); RED CELL DISTRIBUTION WIDTH 13.6 % (9.4-14.8)
[2019-12-26 04:03] LABS: BASOPHILS % (AUTO) 0 % (0-1); EOSINOPHILS # (AUTO) 0.04 x10^3/uL (0-0.4); EOSINOPHILS % (AUTO) 0 % (1-7); LYMPHOCYTES % (AUTO) 2 % (22-44); MD SCAN; MONOCYTES # (AUTO) 0.04 x10^3/uL (0.2-0.8); MONOCYTES % (AUTO) 0 % (2-9); NEUTROPHILS # (AUTO) 23.38 x10^3/uL (1.8-6.8); NEUTROPHILS % (AUTO) 98 % (42-75)
[2019-12-26] MEDS: ASCORBATE SODIUM 3,000 MG in SODIUM CHLORIDE 0.9% 250 ML IV SCH ×4 (04:30→21:39)
[2019-12-26] MEDS: ARTIFICIAL TEARS OINT 3.5 GM EACHEYE SCH ×4 (04:32→21:39)
[2019-12-26] MEDS: INSULIN LISPRO 100 UNITS/ML, PEN SQ-INSULIN SCH ×4 (05:00→21:38)
[2019-12-26] MEDS ORDERED: SODIUM BICARBONATE 8.4% 150 MEQ in DEXTROSE 5% 1,000 ML IV SCH (05:00)
[2019-12-26] MEDS ORDERED: SODIUM BICARB 8.4%, 50ML SYRINGE IVPush ONE (05:00)
[2019-12-26] MEDS: NOREPINEPHRINE 8 MG in SODIUM CHLORIDE 0.9% 242 ML IV PRN ×2 (05:40→18:25)
[2019-12-26] MEDS: PANTOPRAZOLE 40 MG IV IVPush SCH (06:54)
[2019-12-26] MEDS: AMIODARONE 200 MG TABLET PO SCH (09:09)
[2019-12-26] MEDS: ZINC SULFATE 220 MG CAPSULE PO SCH (09:09)
[2019-12-26] MEDS: CHOLECALCIFEROL 5,000u TAB PO SCH (09:09)
[2019-12-26] MEDS: SODIUM CHLORIDE FLUSH 10ML SYR IVF SCH ×2 (09:10→19:52)
[2019-12-26 15:37] LABS: ALANINE AMINOTRANSFERASE 51 U/L (12-78); ALBUMIN 1.3 g/dL (3.4-5.0); ANION GAP 17 mmol/L (5-15); CALCIUM 6.6 mg/dL (8.5-10.1); CHLORIDE 102 mmol/L (98-107); CREATININE 2.93 mg/dL (0.7-1.3)
[2019-12-26 15:40] LABS: ALKALINE PHOSPHATASE 144 U/L (45-117); BILIRUBIN,TOTAL 0.3 mg/dL (0.2-1.0); TOTAL PROTEIN 6.4 g/dL (6.4-8.2)
[2019-12-26] MEDS ORDERED: ACETAMINOPHEN 650 MG/20.3 ML UDC ONE (21:27)
[2019-12-26] MEDS: ACETAMINOPHEN 325 MG TABLET PO PRN (21:39)
[2019-12-27] MEDS: PLAQUENIL 200MG/8ML ORAL SUSP NG SCH (01:25)
[2019-12-27] MEDS: MEROPENEM 500 MG in SODIUM CHLORIDE 0.9% 100 ML IV SCH (01:43)
[2019-12-27] MEDS: INSULIN LISPRO 100 UNITS/ML, PEN SQ-INSULIN SCH (02:03)
[2019-12-27 02:09] LABS: MEAN CORPUSCULAR HEMOGLOBIN 30.6 pg (27.5-34.5); MEAN CORPUSCULAR HGB CONC 32.7 g/dL (33.2-36.2); MEAN CORPUSCULAR VOLUME 93.7 fL (81-97); MEAN PLATELET VOLUME 7.2 fL (7.4-10.4); PLATELET COUNT 583 x10^3/uL (130-400); RED BLOOD COUNT 3.33 x10^6/uL (4.38-5.82); RED CELL DISTRIBUTION WIDTH 13.4 % (9.4-14.8)
[2019-12-27 02:20] LABS: ANION GAP 17 mmol/L (5-15); CHLORIDE 103 mmol/L (98-107); CREATININE 3.75 mg/dL (0.7-1.3); TRIGLYCERIDES 183 mg/dL (50-200)
[2019-12-27] MEDS: ALBUTEROL/IPRATROPIUM 2.5MG/0.5MG, 3 ML NPPB SCH ×2 (02:20→06:47)
[2019-12-27 02:21] LABS: BILIRUBIN,TOTAL 0.2 mg/dL (0.2-1.0)
[2019-12-27 02:31] LABS: CALCIUM 5.1 mg/dL (8.5-10.1)
[2019-12-27 02:41] LABS: MD YES
[2019-12-27 02:45] LABS: BAND#(MANUAL) 1.22 x10^3/uL; BANDS%(MANUAL) 4 % (0-7); LYMPH#(MANUAL) 1.22 x10^3/uL (1-3.4); LYMPHS% (MANUAL) 4 % (22-44); MONOS% (MANUAL) 1 % (2-9); SEG#(MANUAL) 27.66 x10^3/uL (1.8-6.8)
[2019-12-27 02:46] LABS: <PLATELET ESTIMATE> INCREASED; ANISOCYTOSIS 1+; POLYCHROMASIA 1+; SEGS% (MANUAL) 91 % (42-75); TOXIC GRAN 1+
[2019-12-27 02:48] LABS: LARGE PLATELETS 1+
[2019-12-27] MEDS: PROPOFOL 100 ML IV PRN (03:38)
[2019-12-27] MEDS: PANTOPRAZOLE 40 MG IV IVPush SCH (03:38)
[2019-12-27] MEDS: ARTIFICIAL TEARS OINT 3.5 GM EACHEYE SCH (03:39)
[2019-12-27] MEDS: ASCORBATE SODIUM 3,000 MG in SODIUM CHLORIDE 0.9% 250 ML IV SCH (03:39)
[2019-12-27] MEDS: HEPARIN 25,000 UNITS/250ML PMX 250 ML IV PRN (04:51)
[2019-12-27] MEDS ORDERED: CALCIUM CHLORIDE 13.6 MEQ in SODIUM CHLORIDE 0.9% 100 ML IV ONE (06:00)
[2019-12-27 07:26] LABS: INTERNATIONAL NORMALIZED RATIO 1.13 (0.93-1.1)
[2019-12-27 07:35] LABS: C-REACTIVE PROTEIN, QUANT 7.9 mg/dL (0.02-0.49)
== END 2019-12-27 08:30 | disposition expired | DRG 870 ==
LOC: ED 17:38 → EDIP 17:39 → ED 17:55 → 3WST 21:20 → ICU 12-18 13:44
PROVIDERS: ADMIT Internal Medicine; ATTEND Internal Medicine
PROC: 5A1955Z Respiratory Ventilation, Greater than 96 Consecutive Hours (ICD-10-PCS; principal; 2019-12-18)
PROC: 0BH18EZ Insertion of Endotracheal Airway into Trachea, Via Natural or Artificial Opening Endoscopic (ICD-10-PCS; 2019-12-18)
PROC: 02HV33Z Insertion of Infusion Device into Superior Vena Cava, Percutaneous Approach (ICD-10-PCS; 2019-12-18)
PROC: B548ZZA Ultrasonography of Superior Vena Cava, Guidance (ICD-10-PCS; 2019-12-18)
PROC: 3E03317 Introduction of Other Thrombolytic into Peripheral Vein, Percutaneous Approach (ICD-10-PCS; 2019-12-24)
PROC: 5A1D70Z Performance of Urinary Filtration, Intermittent, Less than 6 Hours Per Day (ICD-10-PCS; 2019-12-25)
PROC: 5A1D70Z Performance of Urinary Filtration, Intermittent, Less than 6 Hours Per Day (ICD-10-PCS; 2019-12-26)
DX: A41.89 Other specified sepsis (principal); J12.89 Other viral pneumonia; U07.1 COVID-19; N17.0 Acute kidney failure with tubular necrosis; J96.01 Acute respiratory failure with hypoxia; J96.02 Acute respiratory failure with hypercapnia; G92 Toxic encephalopathy; J15.9 Unspecified bacterial pneumonia; E87.1 Hypo-osmolality and hyponatremia; D68.69 Other thrombophilia; Z99.11 Dependence on respirator [ventilator] status; J93.9 Pneumothorax, unspecified; E78.5 Hyperlipidemia, unspecified; J98.2 Interstitial emphysema; I48.91 Unspecified atrial fibrillation; E11.65 Type 2 diabetes mellitus with hyperglycemia; E11.649 Type 2 diabetes mellitus with hypoglycemia without coma; D72.810 Lymphocytopenia; I10 Essential (primary) hypertension; E78.00 Pure hypercholesterolemia, unspecified; E83.51 Hypocalcemia; R34 Anuria and oliguria; E87.5 Hyperkalemia; D63.8 Anemia in other chronic diseases classified elsewhere; Z66 Do not resuscitate; E83.42 Hypomagnesemia; Z99.2 Dependence on renal dialysis; Z85.46 Personal history of malignant neoplasm of prostate; Z79.84 Long term (current) use of oral hypoglycemic drugs; Z79.4 Long term (current) use of insulin; Z90.79 Acquired absence of other genital organ(s)
CPT/HCPCS: 36415; 36556; 36600; 71045; 76937; 77001; 80048; 80053; 81001; 82247; 82248; 82306; 82310; 82330; 82436; 82550; 82570; 82728; 82803; 82805; 82962; 83540; 83550; 83605; 83615; 83735; 83970; 84100; 84133; 84145; 84156; 84300; 84443; 84478; 84484; 84550; 85025; 85045; 85379; 85520; 85610; 86140; 86705; 86706; 86738; 87040; 87070; 87081; 87086; 87106; 87205; 87340; 87449; 90935; 93005; 94002; 94003; 94640; 96374; 96375; 99285; G0378; J0456; J0696; J1644; J1650; J1940; J2185; J2405; J2543; J2704; J2997; J3262; J7060; J7070; C1751; C9113; J0282; J0330; J1642; J1815; J2060; J2765; J2920; J7030; J7050